=== PATIENT | female | born 1985 | race Caucasian/White ===

== ENCOUNTER → 2017-08-12 | Outpatient (CLI) | payer OTHER ==
[~2017-08-12] MED LIST: PREN1TAB46 PO
== END ==
LOC: HPND 08:12
PROVIDERS: ATTEND Obstetrics & Gynecology
DX: O35.8XX0 Maternal care for other (suspected) fetal abnormality and damage, not applicable or unspecified (principal); O34.12 Maternal care for benign tumor of corpus uteri, second trimester; O99.212 Obesity complicating pregnancy, second trimester; E66.9 Obesity, unspecified; Z68.30 Body mass index [BMI] 30.0-30.9, adult; O26.892 Other specified pregnancy related conditions, second trimester; R19.01 Right upper quadrant abdominal swelling, mass and lump
CPT/HCPCS: 76811

== ENCOUNTER → 2017-09-23 | Outpatient (CLI) | payer OTHER ==
[~2017-09-23] MED LIST changes: +PROC2.5C RECTAL
== END ==
LOC: HPND 09:04
PROVIDERS: ATTEND Obstetrics & Gynecology
DX: O99.212 Obesity complicating pregnancy, second trimester (principal); O35.8XX0 Maternal care for other (suspected) fetal abnormality and damage, not applicable or unspecified; O34.12 Maternal care for benign tumor of corpus uteri, second trimester; E66.9 Obesity, unspecified; Z68.30 Body mass index [BMI] 30.0-30.9, adult
CPT/HCPCS: 76816

== ENCOUNTER → 2017-10-28 | Outpatient (CLI) | payer OTHER | LOC: HPND 08:53 | PROVIDERS: ATTEND Obstetrics & Gynecology | DX: O26.893 Other specified pregnancy related conditions, third trimester (principal); R19.03 Right lower quadrant abdominal swelling, mass and lump; O34.13 Maternal care for benign tumor of corpus uteri, third trimester | CPT/HCPCS: 76816 ==

== ENCOUNTER 2017-11-25 11:06 | Emergency (ER) | payer OTHER ==
[~2017-11-25] VITALS: Ht 172.7 cm; Wt 95.3 kg
[2017-11-25] VITALS (14 sets, daily range): BP systolic 100–121; BP diastolic 64–68; PULSE 71–113
--- NOTE | 2017-11-25 12:07 | PD ---
HPI Chief Complaint contractions Date Seen: Nov 25, 2017 Time Seen: 11:50 Travel History International Travel<30 Days: No Contact w/Intl Traveler<30Days: No Known Affected Area: No History of Present Illness HPI Ms. Payne is a 32-year-old at 37/4 weeks gestation with a past medical history of gestational diabetes diet-controlled presenting to the ED with contractions. She states that the contractions started last night at 11 PM. Pain is a 6 out of 10. Contractions are now every 3 minutes. She is feeling the baby move. Is having no vaginal bleeding or leakage of fluid. No dysuria, no chest pain, no shortness of breath. 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 (not yet determined due to ) Obstetric History Obstetric History Girl, 14, term, Girl, 15, term, Past Surgical History Surgical History: No Previous Surgery Family History Family History: Negative Social History Alcohol Use: No (one glass of wine during baby shower) Tobacco Use: No Substance Abuse: No Allergies-Medications (Allergen,Severity, Reaction): Coded Allergies: No Known Allergies (Unverified , 09/25/17) Home Meds Active Scripts Vit W/ Fe Polysacch C (Prefera Ob 34-1 mg) 28 Mg-6 Mg-1 Mg Tab, 1 CAPLET PO DAILY for 30 Days, #30 CAPLET 3 Refills Prov:Amanda Keating CNM [facility] 07/17/17 Discontinued Scripts Hydrocortisone Rectal 2.5% (Proctosol Hc 2.5%) 2.5% Cream, 1 APPLIC RECTAL Q4H Y for PAIN/INFLAMMATION, #1 TUBE 3 Refills Prov:Tonya Singh [facility] 09/25/17 Vit W/ Fe Polysacch C (Prefera Ob 34-1 mg) 28 Mg-6 Mg-1 Mg Tab, 11 CAPLET PO DAILY for 30 Days, #30 CAPLET 2 Refills Prov:Amanda Keating CNM [facility] 07/30/17 Review of Systems General / Constitutional: No: Fever, Chills Eyes: No: Blurred Vision Cardiovascular: No: Chest Pain or Discomfort Respiratory: No: Short of Breath Genitourinary: No: Dysuria Musculoskeletal: No: Weakness Skin: No Rash Physical Exam Narrative GENERAL: Well-nourished, well-developed patient. SKIN: Warm and dry. HEAD: Normocephalic and atraumatic. EYES: No scleral icterus. No injection or drainage. ENT: No nasal drainage noted. Mucous membranes pink. Airway patent. NECK: Supple, trachea midline. No JVD. CARDIOVASCULAR: Regular rate and rhythm without murmurs, gallops, or rubs. RESPIRATORY: Breath sounds equal bilaterally. No accessory muscle use. ABDOMEN/GI: Abdomen soft, non-tender, bowel sounds present, no rebound, no guarding Gravid to 37 weeks size GENITOURINARY: External Genitalia: intact and normal in appearance Cervix: posterior Dilatation: 2 Effacement: 70 Station: -2 Presentation: - Membranes: intact Uterine Contractions: q3min FHT's: Category: 1 Baseline: 150s Reactive: yes Variability: moderate Decels: none EXTREMITIES: No cyanosis or edema. BACK: Nontender without obvious deformity. No CVA tenderness. NEUROLOGICAL: Awake and alert. Motor and sensory grossly within normal limits. Five out of 5 muscle strength in all muscle groups. Normal speech. Data Data Vital Signs Reviewed: Yes MDM Plan 32-year-old with past medical history of gestational diabetes diet- controlled presenting with contractions. Cervical check is 2/70/-2 with no spinning frame changer the time while in the ED. FHT shows category 1 tracing, reassuring -1 dose of terbutaline 0.25 mg subcu to be given to stop contractions sdw Dr. Ang Diagnosis Diagnosis: Primary Impression: 37 weeks gestation of Disposition: DISCHARGE HOME Condition: Stable Mala Kevin MD R1 Nov 25, 2017 12:07
[2017-11-25] MEDS ORDERED: TERBUTALINE INJ 1 MG/ML AMP ONE (13:57)
--- NOTE | 2017-11-25 13:57 | PD ---
History of Present Illness History of Present Illness NST/BPP report Indications: IUP at 37.4, A1 diabetes, sickle cell trait, history of polyhydramnios heart rate is in the 130s with moderate long-term variability, good accelerations, no decelerations noted. This is a reactive NST and a category 1 heart rate tracing Biophysical profile was performed and greater than 30 seconds continuous breathing were noted, greater than 3 flexion/extension motions, numerous movements were noted. All of the amniotic fluid pockets are greater than 2 x 2 CM. DIANA 7.5/2.99/8.3/3.02 (21.85) Final diagnosis: IUP at 37.4, A1 diabetes, sickle cell trait, polyhydramnios Follow-up as clinically indicated Tonya Ang MD Nov 25, 2017 13:57
[2017-11-25] MEDS ORDERED: TERBUTALINE INJ 1 MG/ML AMP SQ ONE (14:15)
== END 2017-11-25 14:46 | disposition home or self-care (01) ==
LOC: HOBED 11:06
DX: O24.410 Gestational diabetes mellitus in pregnancy, diet controlled (principal); O40.9XX0 Polyhydramnios, unspecified trimester, not applicable or unspecified; D57.3 Sickle-cell trait; Z3A.37 37 weeks gestation of pregnancy
CPT/HCPCS: 59025; 76815; 82948; 96372; 99283; J3105

== ENCOUNTER 2017-11-27 21:59 | Emergency (ER) | payer OTHER ==
[~2017-11-27 21:59] MED LIST changes: -PROC2.5C RECTAL
--- NOTE | 2017-11-27 22:34 | PD ---
HPI Chief Complaint Lower abdominal pain low back pain Date Seen: Nov 27, 2017 Time Seen: 22:28 Travel History International Travel<30 Days: No Contact w/Intl Traveler<30Days: No Known Affected Area: No History of Present Illness HPI Patient is 32-year-old at 37-38 weeks [facility] presents complaining of contractions and lower back pain, she states she has been hao for a couple of weeks his low back pain started several hours ago she tried a hot bath at home. She has no bleeding or leakage of fluid babies active and no contractions are seen, rate tracing is reactive Weeks Gestation: 37 Para: 2 : 3 History Obstetric History Obstetric History 2 vaginal deliveries Social History Alcohol Use: No Tobacco Use: No Substance Abuse: No Allergies-Medications (Allergen,Severity, Reaction): Coded Allergies: No Known Allergies (Unverified , 09/25/17) Home Meds Active Scripts Vit W/ Fe Polysacch C (Prefera Ob 34-1 mg) 28 Mg-6 Mg-1 Mg Tab, 1 CAPLET PO DAILY for 30 Days, #30 CAPLET 3 [facility] Discontinued Scripts Hydrocortisone Rectal 2.5% (Proctosol Hc 2.5%) 2.5% Cream, 1 APPLIC RECTAL Q4H Y for PAIN/INFLAMMATION, #1 TUBE 3 Refills Prov:Tonya SinghP 09/25/17 Vit W/ Fe Polysacch C (Prefera Ob 34-1 mg) 28 Mg-6 Mg-1 Mg Tab, 11 CAPLET PO DAILY for 30 Days, #30 CAPLET 2 [facility]ills [facility] 07/30/17 Review of Systems General / Constitutional: No: Fever, Weight Gain, Chills, Other Eyes: No: Diploplia, Blurred Vision, Visual changes, Pain, Photophobia HENT: No: Headaches, Vertigo, Lightheadedness Cardiovascular: No: Irregular Rhythm, Chest Pain or Discomfort, Palpitations, Tachycardia, Syncope, Varicosities, Edema, Cyanosis Respiratory: No: Cough, Short of Breath, Other Gastrointestinal: Abdominal Pain, No: Nausea, Vomiting, Diarrhea Genitourinary: No: Decreased Urinary Output, Oliguria Musculoskeletal: No: Limited ROM, Weakness, Cramping, Edema, Pain Skin: No Rash, No Itching, No Dryness, No Lumps, No Change in Pigmentation, No Change in Nails, No Alopecia, No Lesions Neurologic: No: Weakness, Dizziness, Syncope, Focal Abnormalities, Coordination Problem, Headache, Slurred Speech, Seizures Psychiatric: No: Depression, Suicidal Ideations, Homicidal Ideation Endocrine: No: Heat Intolerance, Cold Intolerance, Polydipsia, Polyuria, Other Physical Exam Narrative GENERAL: Well-nourished, well-developed patient. SKIN: Warm and dry. HEAD: Normocephalic and atraumatic. EYES: No scleral icterus. No injection or drainage. ENT: No nasal drainage noted. Mucous membranes pink. Airway patent. NECK: Supple, trachea midline. No JVD. CARDIOVASCULAR: Regular rate and rhythm without murmurs, gallops, or rubs. RESPIRATORY: Breath sounds equal bilaterally. No accessory muscle use. BREASTS: Bilateral exam showed no masses , no retractions, no nipple discharge. ABDOMEN/GI: Abdomen soft, non-tender, bowel sounds present, no rebound, no guarding Gravid to [-38] weeks size Fundal Height: [-38] GENITOURINARY: External Genitalia: intact and normal in appearance BUS glands: [-] Cervix: [post-] Dilatation: [-2-3] Effacement: [thick-] Station: [-3] Presentation: [vtx-] Membranes: [intact ] Uterine Contractions: [no reg CTX-] FHT's: Category: [1-] Baseline: [-144] Reactive: [-R] Variability: [mod-] Decels: [-none] EXTREMITIES: No cyanosis or edema. BACK: Nontender without obvious deformity. No CVA tenderness. NEUROLOGICAL: Awake and alert. Motor and sensory grossly within normal limits. Five out of 5 muscle strength in all muscle groups. Normal speech. MDM Interpretation(s) Patient is 32-year-old he [facility] and presents complaining of contractions and low back pain here on OB ED she is not hao heart rate tracing is reactive, cervix is unchanged check which is 2-3/ very thick/ and very posterior Plan , Heating pad or hot bath for symptoms, Tylenol as needed, increase p.o. hydration, she was offered an IM pain shot but she refused that Return for increasing pain, bleeding, or leakage of fluid Diagnosis Diagnosis: Primary Impression: Abdominal pain during in third trimester Additional Impression: Low back pain during in third trimester Disposition: 01 DISCHARGE HOME Condition: Stable Marquis Aden II, MD Nov 27, 2017 22:34
== END 2017-11-27 22:47 | disposition home or self-care (01) ==
LOC: HOBED 21:59
DX: O26.893 Other specified pregnancy related conditions, third trimester (principal); M54.5 Low back pain; R10.30 Lower abdominal pain, unspecified; Z3A.37 37 weeks gestation of pregnancy
CPT/HCPCS: 59025

== ENCOUNTER 2017-12-05 17:23 | Inpatient (IN) | payer OTHER ==
[~2017-12-05] VITALS: Ht 172.7 cm; Wt 98.9 kg
[2017-12-05] VITALS (20 sets, daily range): BP systolic 113–162; BP diastolic 46–102; PULSE 66–111; RESP 18; TEMP 98
[2017-12-05] MEDS ORDERED: LACTATED RINGER'S 1000 ML INJ 1,000 ML IV PRN (19:36)
[2017-12-05] MEDS ORDERED: LIDOCAINE HCL 1% 50 ML VIAL INFIL PRN (19:45)
[2017-12-05] MEDS ORDERED: OXYTOCIN 30 UNITS-500ML PREMIX 500 ML IV ONE (19:45)
[2017-12-05] MEDS ORDERED: MINERAL OIL 10 ML VIAL TOPICAL PRN (19:45)
[2017-12-05] MEDS ORDERED: LIDOCAINE HCL 1% 50 ML VIAL I-DERMAL PRN (19:45)
[2017-12-05] MEDS ORDERED: ONDANSETRON HCL 4 MG/2 ML VIAL IV PUSH PRN (19:45)
[2017-12-05] MEDS ORDERED: SODIUM CHLORID 0.9% 500 ML INJ 500 ML IV PRN (19:45)
[2017-12-05] MEDS ORDERED: CITRIC ACID-SODIUM CITRATE LIQ 30 ML UDC PO SCH (19:45)
--- NOTE | 2017-12-05 19:47 | HHI.HP ---
History & Physical H&P HPI Chief Complaint ctxs Date Seen: Dec 05, 2017 Time Seen: 19:39 Travel History International Travel<30 Days: No Contact w/Intl Traveler<30Days: No Known Affected Area: No History of Present Illness HPI pt. is a 32 y/o @ 39 weeks present w/ c/o ctxs. pt. states thruout the day pt. has had increasing ctxs in freq and intensity. +FM, no lof/vb. pt. cervix /0 bulging membranes. Weeks Gestation: 39 Para: 2 : 3 History (Limited) History Past Medical History Medical History: Denies Significant Hx Obstetric History Obstetric History , x 2, tab x 1 Past Surgical History Surgical History: No Previous Surgery Family History Family History: Negative Social History Alcohol Use: No Tobacco Use: No Substance Abuse: No Allergies-Medications Allergies-Medications (Allergen,Severity, Reaction): Coded Allergies: No Known Allergies (Unverified , 12/05/17) Home Meds Active Scripts Vit W/ Fe Polysacch C (Prefera Ob 34-1 mg) 28 Mg-6 Mg-1 Mg Tab, 1 CAPLET PO DAILY for 30 Days, #30 CAPLET 3 Refills Prov:Amanda Keating CNM [facility] 07/17/17 ROS Review of Systems Except as stated in HPI: all other systems reviewed are Neg Physical Exam Physical Exam Narrative GENERAL: Well-nourished, well-developed patient. SKIN: Warm and dry. HEAD: Normocephalic and atraumatic. EYES: No scleral icterus. No injection or drainage. ENT: No nasal drainage noted. Mucous membranes pink. Airway patent. NECK: Supple, trachea midline. No JVD. CARDIOVASCULAR: Regular rate and rhythm without murmurs, gallops, or rubs. RESPIRATORY: Breath sounds equal bilaterally. No accessory muscle use. ABDOMEN/GI: Abdomen soft, non-tender, bowel sounds present, no rebound, no guarding Gravid GENITOURINARY: External Genitalia: intact and normal in appearance Dilatation: 4 Effacement:80 Station: 0 Presentation: cephalic Membranes:intact Uterine Contractions: q 3 min FHT's: Category: 1 Reactive: + Variability:mod EXTREMITIES: No cyanosis or edema. BACK: Nontender without obvious deformity. No CVA tenderness. NEUROLOGICAL: Awake and alert. Motor and sensory grossly within normal limits. Five out of 5 muscle strength in all muscle groups. Normal speech. Data Data Data Vital Signs Reviewed: Yes Orders Orders Admit To Inpatient (12/05/17 ) Code Status (12/05/17 19:36) Vital Signs (Adult) .Per protocol (12/05/17 19:36) Activity Oob Ad [place] (12/05/17 19:36) Heart (12/05/17:36) Amnioinfusion (12/05/17 19:36) Urinary Catheter Management .ONCE (12/05/17 19:36) Diet Liquid (12/06/17 Breakfast) Lactated Ringer's 1000 Ml Inj (Lr 1000 M (12/05/17 19:36) Lactated Ringer's 1000 Ml Inj (Lr 1000 M (12/05/17 19:36) Sodium Chlorid 0.9% 500 Ml Inj (Ns 500 M (12/05/17 19:45) Sodium Chlor 0.9% 1000 Ml Inj (Ns 1000 M (12/05/17 19:56) Lidocaine 1% Inj (50 Ml) (Xylocaine 1% I (12/05/17 19:45) Citric Acid-Sodium Citrate Liq (Bicitra (12/05/17 19:45) Ondansetron Inj (Zofran Inj) (12/05/17 19:45) Fentanyl Inj (Fentanyl Inj) (12/05/17 19:45) Fentanyl Inj (Fentanyl Inj) (12/05/17 19:45) Complete Blood Count With Diff (12/05/17 19:36) Hold Clot (12/05/17 19:36) Abo/Rh Blood Type (12/05/17 19:36) Urinalysis - C+S If Indicated (12/05/17 19:36) Drug Screen, Random Urine (12/05/17 19:36) Ob/Psych Drug Screen, Urine (12/05/17:36) Resp Oxygen Non Rebreathe Mask (12/05/17 ) ^ Epidural / Intrathecal Infus (12/05/17 19:36) Oxytocin 30 Units-500ml Premix (Pitocin (12/05/17 19:45) Lidocaine 1% Inj (50 Ml) (Xylocaine 1% I (12/05/17 19:45) Light Mineral Oil (Muri-Lube Oil) (12/05/17 19:45) Inpatient Certification (12/05/17 ) Group B Strep: Negative MDM MDM Medical Record Reviewed: Yes Plan pt in active labor. will admit. fht reassuring. epidural vs fentanyl. will continue to follow. Diagnosis Diagnosis: Primary Impression: 39 weeks gestation of Additional Impression: Uterine contractions during Peng Goff Jr., MD Dec 05, 2017 19:47
[2017-12-05] MEDS ORDERED: SODIUM CHLOR 0.9% 1000 ML INJ 1,000 ML IV PRN (19:56)
[2017-12-05] MEDS ORDERED: fentaNYL 2MCG-BUPIV 0.125% INJ 100 ML ONE (20:03)
[2017-12-05] MEDS: LACTATED RINGER'S 1000 ML INJ 1,000 ML IV SCH (20:10)
[2017-12-05 20:39] LABS: AUTOMATED NEUTROPHIL # 11.9 TH/MM3 (1.8-7.7); BASOPHIL % 0.3 % (0.0-2.0); EOSINOPHIL % 0.3 % (0.0-4.0); HEMATOCRIT 33.6 % (35.0-46.0); HEMOGLOBIN 11.1 GM/DL (11.6-15.3); LYMPH % 11.9 % (9.0-44.0); LYMPHOCYTE # 1.7 TH/MM3 (1.0-4.8); MEAN CELL VOLUME 73.7 FL (80.0-100.0); MEAN CORPUSCULAR HEMOGLOBIN 24.5 PG (27.0-34.0); MEAN CORPUSCULAR HGB CONC 33.2 % (32.0-36.0); MEAN PLATELET VOLUME 9.1 FL (7.0-11.0); MONOCYTE # 0.6 TH/MM3 (0-0.9); NEUT % 83.5 % (16.0-70.0); PLATELET COUNT 255 TH/MM3 (150-450); RED BLOOD COUNT 4.56 MIL/MM3 (4.00-5.30); RED CELL DISTRIBUTION WIDTH 16.2 % (11.6-17.2); WHITE BLOOD COUNT 14.3 TH/MM3 (4.0-11.0)
[2017-12-05 20:56] LABS: BACTERIA, URINE RARE /hpf; BILIRUBIN, URINE NEG (NEG); BLOOD, URINE MOD (NEG); GLUCOSE,URINE NEG (NEG); KETONE, URINE 40 mg/dL (NEG); MUCUS URINE FEW /lpf (OCC); NITRITE,URINE NEG (NEG); SQUAMOUS EPITHELIAL CELL URINE 6 /hpf (0-5); URINE COLOR LIGHT-YELLOW (YELLW/STRAW); URINE LEUKOCYTE ESTERASE MOD (NEG)
[2017-12-06] VITALS (203 sets, daily range): BP systolic 62–137; BP diastolic 20–80; PULSE 61–178; RESP 16–18; TEMP 98–99.4; O2SAT 95–100
[2017-12-06] MEDS ORDERED: ePHEDrine/NS 25 MG/5 ML SYRINGE ONE (00:49)
[2017-12-06] MEDS: LACTATED RINGER'S 1000 ML INJ 1,000 ML IV SCH ×2 (04:30→17:07)
[2017-12-06] MEDS ORDERED: fentaNYL 2MCG-BUPIV 0.125% INJ 100 ML ONE ×2 (06:33→12:52)
--- NOTE | 2017-12-06 09:23 | PD.LABORPN ---
Subjective Subjective Ms Payne continues to labor. AROM performed at 0900hrs by Jareth Goff and Bonifacio. Pt is 4/50/0. FHT with baseline 145, moderate variability, reactive, absent decels Objective Vital Signs Vital Signs Date Time Temp Pulse Resp B/P (MAP) Pulse Ox O2 Delivery O2 Flow Rate FiO2 12/06/17 08:53 98.0 12/06/17 08:40 78 12/06/17 08:35 90 12/06/17 08:31 73 132/69 (90) 12/06/17 08:30 78 12/06/17 08:30 16 12/06/17 08:25 80 12/06/17 08:20 75 12/06/17 08:16 76 120/65 (83) 12/06/17 08:15 73 12/06/17 08:10 87 12/06/17 08:05 85 12/06/17 08:01 83 121/71 (88) 12/06/17 08:00 78 12/06/17 08:00 16 12/06/17 07:55 81 12/06/17 07:50 81 12/06/17 07:46 95 98/47 (64) 12/06/17 07:45 92 12/06/17 07:30 16 12/06/17 07:25 82 12/06/17 07:20 95 12/06/17 07:15 87 12/06/17 07:15 92 114/62 (79) 12/06/17 06:50 84 12/06/17 06:46 95 113/52 (72) 12/06/17 06:45 88 12/06/17 06:40 85 12/06/17 06:35 84 12/06/17 06:31 69 124/65 (84) 12/06/17 06:30 86 12/06/17 06:25 89 12/06/17 06:20 86 12/06/17 06:16 88 110/63 (79) 12/06/17 06:15 87 12/06/17 06:05 76 12/06/17 06:01 66 128/65 (86) 12/06/17 06:00 99.4 84 18 12/06/17 05:55 82 12/06/17 05:50 77 12/06/17 05:46 80 113/60 (77) 12/06/17 05:45 85 12/06/17 05:35 81 12/06/17 05:31 77 124/68 (86) 12/06/17 05:30 75 12/06/17 05:25 82 12/06/17 05:20 82 12/06/17 05:16 79 120/67 (84) 12/06/17 05:15 79 12/06/17 05:01 128/61 (83) 12/06/17 05:00 81 12/06/17 04:45 116/67 (83) 12/06/17 04:30 93 120/70 (87) 12/06/17 04:15 79 107/58 (74) 12/06/17 04:00 98.0 12/06/17 04:00 76 12/06/17 04:00 105/51 (69) 12/06/17 03:45 108/56 (73) 12/06/17 03:31 107/56 (73) 12/06/17 03:16 122/63 (82) 12/06/17 03:15 74 12/06/17 03:10 90 12/06/17 03:05 86 12/06/17 03:01 78 127/64 (85) 12/06/17 03:00 78 12/06/17 02:55 78 12/06/17 02:50 76 12/06/17 02:46 75 128/61 (83) 12/06/17 02:45 80 12/06/17 02:31 80 134/56 (82) 12/06/17 02:30 95 12/06/17 02:25 81 12/06/17 02:20 82 12/06/17 02:16 76 126/63 (84) 12/06/17 02:15 80 12/06/17 02:15 98.1 18 12/06/17 02:10 87 12/06/17 02:05 81 12/06/17 02:01 83 124/66 (85) 12/06/17 02:00 80 12/06/17 01:46 72 124/57 (79) 12/06/17 01:45 84 12/06/17 01:40 79 100 12/06/17 01:36 89 109/60 (76) 12/06/17 01:35 79 100 12/06/17 01:31 76 108/57 (74) 12/06/17 01:30 82 100 12/06/17 01:30 82 100 12/06/17 01:26 68 114/53 (73) 12/06/17 01:26 68 114/53 (73) 12/06/17 01:25 83 100 12/06/17 01:25 83 100 12/06/17 01:21 69 112/51 (71) 12/06/17 01:20 79 12/06/17 01:20 100 12/06/17 01:20 100 12/06/17 01:16 81 101/57 (72) 12/06/17 01:15 89 12/06/17 01:15 100 12/06/17 01:15 100 Objective Pelvic Exam: Cervix: open Dilatation: 4 Effacement: 50 Station: 0 Presentation: vtx Membranes: AROM 0900AM 12/06/17 Uterine Contractions: regular, 2-3 minutes FHT's: Category: 1 Baseline: 145 Reactive: yes Variability: moderate Decels: absent Weeks Gestation: 39 Artificial rupture of membrane: Yes Artificial ROM date: Dec 06, 2017 Artifical ROM time: 09:00 Assessment/Plan Problem List: (1) 39 weeks gestation of ICD Codes: Z3A.39 - 39 weeks gestation of Status: Acute Plan: 32YO at 39/1 weeks with AROM at 0900AM 12/06/[address] Valdovinos. Cervix is 4/50/0. FHT baseline 145, reactive, moderate, no decels 1. IUP -Monitor -[place] -Cervical check q2h (2) GDM (gestational diabetes mellitus) ICD Codes: O24.419 - Gestational diabetes mellitus in , unspecified control Plan: Diagnosed late in ; pt has not been compliant; no 3 hr GTT -Fingerstick blood glucose 80 this morning Dima Valdovinos MD R1 Dec 06, 2017 09:23
[2017-12-06] MEDS ORDERED: OXYTOCIN 30 UNITS-500ML PREMIX 500 ML IV PRN (10:30)
[2017-12-06] MEDS ORDERED: ceFAZolin INJ 1,000 MG VIAL IV ONE (12:00)
[2017-12-06] MEDS ORDERED: NORMOSOL R INJ 1,000 ML IV ONE (12:00)
[2017-12-06] MEDS ORDERED: DEXAMETHASONE SOD PHOS 4 MG/ML VIAL IV ONE (12:00)
[2017-12-06] MEDS ORDERED: OXYTOCIN 10 UNIT/ML AMP IV ONE (12:00)
[2017-12-06] MEDS ORDERED: KETOROLAC TROMETHAMINE 30 MG/ML (IVP) VIAL IV PUSH ONE (12:00)
[2017-12-06] MEDS ORDERED: ONDANSETRON HCL 4 MG/2 ML VIAL IV ONE (12:00)
[2017-12-06] MEDS ORDERED: LIDOCAINE HCL 2% PF 10 ML VIAL IV ONE (12:00)
[2017-12-06] MEDS ORDERED: DO NOT ADMINISTER ANTICOAGULANTS PRN (14:00)
[2017-12-06] MEDS ORDERED: NO SYSTEM NARCOTICS PRN (14:00)
[2017-12-06] MEDS ORDERED: ePHEDrine/NS 25 MG/5 ML SYRINGE IV PUSH PRN (14:00)
[2017-12-06] MEDS ORDERED: fentaNYL 2MCG-BUPIV 0.125% 100 ML EPIDURAL SCH (14:00)
--- NOTE | 2017-12-06 16:32 | PD.LABORPN ---
Subjective Subjective 32YO at 39/1 weeks laboring with Pitocin augmentation. Cervix at 1600hrs is 7-8/80/-1 with Cat 2, FHT 150s, moderate, reactive with several variable decels corrected by repositioning on side (Dima Valdovinos MD R1) Objective Vital Signs Vital Signs Date Time Temp Pulse Resp B/P (MAP) Pulse Ox O2 Delivery O2 Flow Rate FiO2 12/06/17 16:01 81 123/70 (87) 12/06/17 16:00 98.2 16 12/06/17 15:46 76 116/66 (83) 12/06/17 15:31 72 118/60 (79) 12/06/17 15:28 16 12/06/17 15:16 109 119/60 (79) 12/06/17 15:01 72 105/41 (62) 12/06/17 15:00 16 12/06/17 14:46 72 129/69 (89) 12/06/17 14:31 72 124/66 (85) 12/06/17 14:30 16 12/06/17 14:16 70 104/66 (79) 12/06/17 14:00 99.0 16 12/06/17 14:00 89 112/66 (81) 12/06/17 13:46 70 107/57 (74) 12/06/17 13:31 69 102/48 (66) 12/06/17 13:30 16 12/06/17 13:16 69 103/47 (65) 12/06/17 13:01 76 103/45 (64) 12/06/17 13:00 16 12/06/17 12:46 67 121/67 (85) 12/06/17 12:45 16 12/06/17 12:31 118/61 (80) 12/06/17 12:31 72 12/06/17 12:16 75 133/73 (93) 12/06/17 12:15 16 12/06/17 12:01 158 120/64 (82) 12/06/17 12:00 98.1 16 12/06/17 11:46 69 131/65 (87) 12/06/17 11:31 79 125/63 (83) 12/06/17 11:30 16 12/06/17 11:16 80 117/65 (82) 12/06/17 11:01 82 118/67 (84) 12/06/17 11:00 16 12/06/17 10:50 68 12/06/17 10:46 83 117/63 (81) 12/06/17 10:45 75 12/06/17 10:40 73 12/06/17 10:35 94 12/06/17 10:31 86 107/62 (77) 12/06/17 10:30 74 12/06/17 10:30 16 12/06/17 10:25 80 12/06/17 10:16 74 115/67 (83) 12/06/17 10:15 78 12/06/17 10:10 82 12/06/17 10:05 88 12/06/17 10:01 86 125/62 (83) 12/06/17 10:00 92 12/06/17 10:00 98.5 16 12/06/17 09:55 95 12/06/17 09:50 77 12/06/17 09:46 75 116/66 (83) 12/06/17 09:45 77 12/06/17 09:25 81 12/06/17 09:20 79 12/06/17 09:16 80 117/65 (82) 12/06/17 09:15 76 12/06/17 08:53 98.0 12/06/17 08:40 78 12/06/17 08:35 90 12/06/17 08:31 73 132/69 (90) 12/06/17 08:30 78 12/06/17 08:30 16 12/06/17 08:25 80 Objective Pelvic Exam: Cervix: open Dilatation: 7-8 Effacement: 80 Station: -1 Presentation: vtx Membranes: AROM at 0900 on 12/06 Uterine Contractions: q2 minutes, regular FHT's: Category: 2 Baseline: 150s Reactive: yes Variability: moderate Decels: several variable decels, corrected with repositioning Weeks Gestation: 39 Artificial rupture of membrane: Yes Artificial ROM date: Dec 06, 2017 Artifical ROM time: 09:00 (Dima Valdovinos MD R1) Assessment/Plan Problem List: (1) 39 weeks gestation of ICD Codes: Z3A.39 - 39 weeks gestation of Status: Acute Plan: 32YO at 39/1 weeks with AROM at 0900AM 4/6/[address] Valdovinos. Re- check at 1600hrs with cervix is 7-8/80/-1. Labor augmented by Pitocin. FHT Cat 2 , baseline 150s, reactive, moderate, several variable decels corrected by repositioning on side 1. [place] IUP with labor augmentation -Monitor -[place] -Epidural in place -Cervical check q2h -Pitocin 10/04/29, titrate per protocol -Reposition when variable decels -Consider supplemental O2 if repositioning unsuccessful -Consider reducing Pitocin if variable decels recur 2. GDM -Monitor Pt seen with Dr Yanna Ruelas and melissa Castillo (2) GDM (gestational diabetes mellitus) ICD Codes: O24.419 - Gestational diabetes mellitus in , unspecified control Plan: Diagnosed late in ; pt has not been compliant; no 3 hr GTT -Fingerstick blood glucose 80 this morning (Dima Valdovinos MD R1) Assessment and Plan Patient seen and evaluated with resident under direct supervision, agree with assessment and plan. (Jaime Castillo MD) Dima Valdovinos MD R1 Dec 06, 2017 16:32 Jaime Castillo MD Dec 06, 2017 21:32
--- NOTE | 2017-12-06 18:16 | PD.LABORPN ---
Subjective Subjective Patient feeling pressure and can sense CTX, otherwise no complaints (Lindsay Ruelas MD R2) Objective Vital Signs Vital Signs Date Time Temp Pulse Resp B/P (MAP) Pulse Ox O2 Delivery O2 Flow Rate FiO2 12/06/17 17:27 16 12/06/17 17:16 78 112/62 (79) 12/06/17 17:01 86 99/43 (61) 12/06/17 17:00 16 12/06/17 16:46 78 119/67 (84) 12/06/17 16:31 82 102/58 (73) 12/06/17 16:26 16 12/06/17 16:16 77 107/80 (89) 12/06/17 16:01 81 123/70 (87) 12/06/17 16:00 98.2 16 12/06/17 15:46 76 116/66 (83) 12/06/17 15:31 72 118/60 (79) 12/06/17 15:28 16 12/06/17 15:16 109 119/60 (79) 12/06/17 15:01 72 105/41 (62) 12/06/17 15:00 16 12/06/17 14:46 72 129/69 (89) 12/06/17 14:31 72 124/66 (85) 12/06/17 14:30 16 12/06/17 14:16 70 104/66 (79) 12/06/17 14:00 99.0 16 12/06/17 14:00 89 112/66 (81) 12/06/17 13:46 70 107/57 (74) 12/06/17 13:31 69 102/48 (66) 12/06/17 13:30 16 12/06/17 13:16 69 103/47 (65) 12/06/17 13:01 76 103/45 (64) 12/06/17 13:00 16 12/06/17 12:46 67 121/67 (85) 12/06/17 12:45 16 12/06/17 12:31 118/61 (80) 12/06/17 12:31 72 12/06/17 12:16 75 133/73 (93) 12/06/17 12:15 16 12/06/17 12:01 158 120/64 (82) 12/06/17 12:00 98.1 16 12/06/17 11:46 69 131/65 (87) 12/06/17 11:31 79 125/63 (83) 12/06/17 11:30 16 12/06/17 11:16 80 117/65 (82) 12/06/17 11:01 82 118/67 (84) 12/06/17 11:00 16 12/06/17 10:50 68 12/06/17 10:46 83 117/63 (81) 12/06/17 10:45 75 12/06/17 10:40 73 12/06/17 10:35 94 12/06/17 10:31 86 107/62 (77) 12/06/17 10:30 74 12/06/17 10:30 16 12/06/17 10:25 80 12/06/17 10:16 74 115/67 (83) 12/06/17 10:15 78 12/06/17 10:10 82 Objective Pelvic Exam: Cervix: 9-10/100/0 Membranes: ruptured Uterine Contractions: q 3 min FHT's: Category: 2 Baseline: 150s Reactive: 170s Variability: mod Decels: variables intermittently Weeks Gestation: 39 Artificial rupture of membrane: Yes Artificial ROM date: Dec 06, 2017 Artifical ROM time: 09:00 (Lindsay Ruelas MD R2) Assessment/Plan Problem List: (1) 39 weeks gestation of ICD Codes: Z3A.39 - 39 weeks gestation of Status: Acute Plan: 32YO at 39/1 weeks with AROM at 0900AM 12/06/[address] Valdovinos. Cervix 9 cm, will continue to monitor. FHT Cat 2, baseline 150s, reactive, moderate, intermittent variables noted but self-resolving at this time. Patient left lateral decub at this time 1. [place] IUP with labor augmentation -Monitor -[place] -Epidural in place -Cervical check q2h -Pitocin 10/04/29, at 10 -Reposition when variable decels -Consider supplemental O2 if repositioning unsuccessful -Consider reducing Pitocin if variable decels recur 2. GDM -Monitor glucose, fasting glucose 80 this morning Pt seen with RN, discussed with Dr. Castillo (2) GDM (gestational diabetes mellitus) ICD Codes: O24.419 - Gestational diabetes mellitus in , unspecified control Plan: Diagnosed late in ; pt has not been compliant; no 3 hr GTT, not on insulin -Fingerstick blood glucose 80 this morning (Lindsay Ruelas MD R2) Assessment and Plan Patient seen and evaluated with resident under direct supervision, agree with assessment and plan. (Jaime Castillo MD) Lindsay Ruelas MD R2 Dec 06, 2017 18:16 Jaime Castillo MD Dec 06, 2017 21:32
[2017-12-06] MEDS ORDERED: diphenhydrAMINE HCL 50 MG/ML VIAL ONE (19:56)
[2017-12-06] MEDS ORDERED: diphenhydrAMINE HCL 50 MG/ML VIAL IV PUSH ONE (20:00)
--- NOTE | 2017-12-06 21:37 | PD.LABORPN ---
Subjective Subjective The patient reports good pain relief. She is fatigued. Objective Vital Signs Vital Signs Date Time Temp Pulse Resp B/P (MAP) Pulse Ox O2 Delivery O2 Flow Rate FiO2 12/06/17 21:15 98.1 73 104/56 (72) 12/06/17 21:01 71 89/67 (74) 12/06/17 20:47 79 123/59 (80) 12/06/17 20:38 178 131/75 (93) 12/06/17 19:53 18 12/06/17 19:46 97 112/55 (74) 12/06/17 19:40 18 12/06/17 19:36 98.2 12/06/17 19:31 109 98/68 (78) 12/06/17 19:21 18 12/06/17 19:16 75 111/58 (75) 12/06/17 19:01 77 104/38 (60) 12/06/17 19:00 16 12/06/17 18:47 98.9 12/06/17 18:46 73 137/61 (86) 12/06/17 18:31 71 123/65 (84) 12/06/17 18:24 16 12/06/17 18:16 69 137/57 (83) 12/06/17 18:01 67 122/56 (78) 12/06/17 18:00 16 12/06/17 17:46 74 120/61 (80) 12/06/17 17:31 79 115/54 (74) 12/06/17 17:27 16 12/06/17 17:16 78 112/62 (79) 12/06/17 17:01 86 99/43 (61) 12/06/17 17:00 16 12/06/17 16:46 78 119/67 (84) 12/06/17 16:31 82 102/58 (73) 12/06/17 16:26 16 12/06/17 16:16 77 107/80 (89) 12/06/17 16:01 81 123/70 (87) 12/06/17 16:00 98.2 16 12/06/17 15:46 76 116/66 (83) 12/06/17 15:31 72 118/60 (79) 12/06/17 15:28 16 4/6/18 15:16 109 119/60 (79) 12/06/17 15:01 72 105/41 (62) 12/06/17 15:00 16 12/06/17 14:46 72 129/69 (89) 12/06/17 14:31 72 124/66 (85) 12/06/17 14:30 16 12/06/17 14:16 70 104/66 (79) 12/06/17 14:00 99.0 16 12/06/17 14:00 89 112/66 (81) 12/06/17 13:46 70 107/57 (74) Objective Pelvic Exam: Cervix: [-] Dilatation: [-9] Effacement: [90-] Station: [--2] Presentation: [vtx-] Membranes: [intact or ruptured] Uterine Contractions: [-Every 2-3 adequate] FHT's: Category: [2-] Baseline: [160s-] Reactive: [-] Variability: [Moderate-] Decels: [Variable-] Weeks Gestation: 39 Gest Age Assessed Date: Dec 06, 2017 Pt started active labor?: Yes Medical induction of labor?: No Artificial rupture of membrane: Yes Artificial ROM date: Dec 06, 2017 Artifical ROM time: 09:00 Assessment/Plan Problem List: (1) 39 weeks gestation of ICD Codes: Z3A.39 - 39 weeks gestation of Status: Acute Plan: 32YO at 39/1 weeks with AROM at 0900AM 12/06/[address] Valdovinos. Cervix 9 cm, will continue to monitor. FHT Cat 2, baseline 150s, reactive, moderate, intermittent variables noted but self-resolving at this time. Patient left lateral decub at this time 1. [place] IUP with labor augmentation -Monitor -[place] -Epidural in place -Cervical check q2h -Pitocin 10/04/29, at 10 -Reposition when variable decels -Consider supplemental O2 if repositioning unsuccessful -Consider reducing Pitocin if variable decels recur 2. GDM -Monitor glucose, fasting glucose 80 this morning Pt seen with RN, discussed with Dr. Castillo (2) GDM (gestational diabetes mellitus) ICD Codes: O24.419 - Gestational diabetes mellitus in , unspecified control Plan: Diagnosed late in ; pt has not been compliant; no 3 hr GTT, not on insulin -Fingerstick blood glucose 80 this morning Assessment and Plan Assessment: The patient has arrested in the active phase of labor Plan: I discussed with the patient the risks benefits and alternatives and we will proceed with primary section. Jaime Castillo MD Dec 06, 2017 21:37
[2017-12-06] MEDS ORDERED: ACETAMINOPHEN 1000 MG/100 ML 100 ML IV ONE (21:43)
--- NOTE | 2017-12-06 22:51 | PD.OP ---
Operative Report Date of Surgery: Dec 06, 2017 Preoperative Diagnosis: (1) Arrested active phase of labor Postoperative Diagnosis: Arrested active phase of labor, fibroid uterus Procedure: Primary lower uterine segment transverse section Anesthesia: Epidural Surgeon: Jaime Castillo Condominium Manager(s): Kavitha Klein Resident Surgeon: None Operation and Findings: The patient was taken to the operating room after administration of a satisfactory level of her labor epidural was prepped and draped in dorsal supine position. The skin was incised transversely in the lower abdomen and the subcutaneous tissues tissue sharply dissected away down to level of the fascia which was nicked in the midline and extended bilaterally with scissors. The fascia was from the underlying muscle sharp and blunt dissection. The peritoneum was bluntly entered. Bladder flap was crated with sharp dissection. An 8 cm subserosal fibroid was noted just above the lower uterine segment. A transverse hysterotomy was made in the lower uterine segment and extended bilaterally with digital traction. The vertex was elevated out of the pelvic inlet and delivered easily through the hysterotomy. With fundal pressure and gentle traction remainder the followed easily. Delayed cord clamping was accomplished. The baby was then passed to the waiting attendants. Cord blood gas segment was obtained and cord blood was obtained. The fundus was massaged until the senna passed spontaneously. It was grossly normal and apparently intact. Uterine cavity was wiped with a moistened lap sponge. There was no evidence of penetrating component of the fibroid into the endometrial cavity. The hysterotomy was then closed with a running suture of 0 Monocryl. Second imbricating layer of 0 Monocryl was used over the first. A single [id number] suture was used for additional hemostasis. After observing excellent hemostasis normal appearing tubes and ovaries were noted. The paracolic gutter and posterior cul-de-sac were evacuated of excess blood and amniotic fluid. The fascia was then closed anteriorly with #1 PDS. The septations tissue was closed with 3-0 Vicryl and the skin with 4-0 undyed Vicryl and tissue glue. The sponge instrument needle counts are correct 3, estimated blood loss 700 cc , complications none Findings: Fibroid uterus, viable female Jaime Castillo MD Dec 06, 2017 22:51
[2017-12-06] MEDS ORDERED: OXYTOCIN 30 UNITS-500ML PREMIX 500 ML IV ONE (23:00)
[2017-12-06] MEDS: ACETAMINOPHEN 1000 MG/100 ML 100 ML IV SCH (23:00)
[2017-12-06] MEDS ORDERED: KETOROLAC TROMETHAMINE 60 MG/2 ML (IM) VIAL IM PRN (23:00)
[2017-12-06] MEDS ORDERED: SODIUM CHLORIDE 0.9% FLUSH 10 ML FLUSH IV FLUSH PRN (23:00)
[2017-12-06] MEDS ORDERED: ONDANSETRON HCL 4 MG/2 ML VIAL IV PUSH PRN (23:00)
[2017-12-07] MEDS ORDERED: EPIDURAL-DO NOT ADMINISTER ANTICOAGULANTS PRN (00:15)
[2017-12-07] MEDS ORDERED: EPIDURAL-NALOXONE HCL 0.4 MG/ML AMP IV PUSH PRN (00:15)
[2017-12-07] MEDS ORDERED: EPIDURAL-DIPHENHYDRAMINE HCL 50 MG CAP PO PRN (00:15)
[2017-12-07] MEDS ORDERED: EPIDURAL-DIPHENHYDRAMINE HCL 50 MG/ML VIAL IV PUSH PRN (00:15)
[2017-12-07] MEDS ORDERED: EPIDURAL-NO SYSTEMIC NARCOTICS PRN (00:15)
[2017-12-07 01:00] VITALS: BP 109/53; PULSE 80; PULSE 98; RESP 18; TEMP 98.2; O2SAT 97
[2017-12-07] MEDS ORDERED: OXYTOCIN INJ 20 UNITS in LACTATED RINGER'S 1000 ML INJ 1,000 ML IV SCH (01:00)
[2017-12-07] MEDS: oxyCODONE/ACETAMINOPHEN 5 MG/325 MG TAB PO PRN ×5 (03:11→20:25)
[2017-12-07] MEDS ORDERED: LACTATED RINGER'S 1000 ML INJ 1,000 ML IV SCH (03:51)
[2017-12-07 04:00] VITALS: BP 116/55; PULSE 91; RESP 18; TEMP 98.3; O2SAT 96
[2017-12-07] MEDS: ACETAMINOPHEN 1000 MG/100 ML 100 ML IV SCH (06:00)
[2017-12-07 07:27] LABS: AUTOMATED NEUTROPHIL # 17.9 TH/MM3 (1.8-7.7); BASOPHIL % 0.1 % (0.0-2.0); HEMATOCRIT 29.9 % (35.0-46.0); HEMOGLOBIN 9.7 GM/DL (11.6-15.3); LYMPH % 4.8 % (9.0-44.0); LYMPHOCYTE # 0.9 TH/MM3 (1.0-4.8); MEAN CELL VOLUME 74.1 FL (80.0-100.0); MEAN CORPUSCULAR HGB CONC 32.4 % (32.0-36.0); MONOCYTE # 0.6 TH/MM3 (0-0.9); NEUT % 92.1 % (16.0-70.0); PLATELET COUNT 202 TH/MM3 (150-450); RED BLOOD COUNT 4.04 MIL/MM3 (4.00-5.30); RED CELL DISTRIBUTION WIDTH 16.1 % (11.6-17.2); WHITE BLOOD COUNT 19.5 TH/MM3 (4.0-11.0)
[2017-12-07 07:30] VITALS: BP 105/56; PULSE 71; RESP 20; TEMP 97.4
--- NOTE | 2017-12-07 07:42 | HHI.OB ---
Subjective Post Operative Day: 1 Remarks Postoperative day # 1. AFVSS overnight. Incision not draining. Decreased lochia. Denies dysuria. No breast tenderness. She is feeding the baby via breast. Appetite good. No nausea or vomiting. Patient has not yet had a bowel movement. Ambulating well. Denies calf pain or shortness of breath. Otherwise , she is doing well this morning and has no other concerns. (Lindsay Ruelas MD R2) Remarks Patient seen and evaluated with resident under direct supervision, agree with assessment and plan. (Jaime Castillo MD) Objective Vitals/I&O Vital Signs Date Time Temp Pulse Resp B/P (MAP) Pulse Ox O2 Delivery O2 Flow Rate FiO2 12/07/17 04:00 91 18 116/55 (75) 96 12/07/17 04:00 98.3 12/07/17 01:00 98.2 98 18 109/53 (71) 97 12/07/17 01:00 80 12/06/17 23:45 86 18 101/53 (69) 12/06/17 23:22 86 18 101/59 (73) 97 12/06/17 23:02 74 18 95/54 (68) 98 12/06/17 22:52 93/49 (64) 12/06/17 22:50 98.9 74 18 98 12/06/17 21:30 149 100/79 (86) 12/06/17 21:15 98.1 73 104/56 (72) 12/06/17 21:01 71 89/67 (74) 12/06/17 20:47 79 123/59 (80) 12/06/17 20:38 178 131/75 (93) 12/06/17 19:53 18 12/06/17 19:46 97 112/55 (74) 12/06/17 19:40 18 12/06/17 19:36 98.2 12/06/17 19:31 109 98/68 (78) 12/06/17 19:21 18 12/06/17 19:16 75 111/58 (75) 12/06/17 19:01 77 104/38 (60) 12/06/17 19:00 16 12/06/17 18:47 98.9 12/06/17 18:46 73 137/61 (86) 12/06/17 18:31 71 123/65 (84) 12/06/17 18:24 16 12/06/17 18:16 69 137/57 (83) 12/06/17 18:01 67 122/56 (78) 12/06/17 18:00 16 12/06/17 17:46 74 120/61 (80) 12/06/17 17:31 79 115/54 (74) 12/06/17 17:27 16 12/06/17 17:16 78 112/62 (79) 12/06/17 17:01 86 99/43 (61) 12/06/17 17:00 16 12/06/17 16:46 78 119/67 (84) 12/06/17 16:31 82 102/58 (73) 12/06/17 16:26 16 12/06/17 16:16 77 107/80 (89) 12/06/17 16:01 81 123/70 (87) 12/06/17 16:00 98.2 16 12/06/17 15:46 76 116/66 (83) 12/06/17 15:31 72 118/60 (79) 12/06/17 15:28 16 12/06/17 15:16 109 119/60 (79) 12/06/17 15:01 72 105/41 (62) 12/06/17 15:00 16 12/06/17 14:46 72 129/69 (89) 12/06/17 14:31 72 124/66 (85) 12/06/17 14:30 16 12/06/17 14:16 70 104/66 (79) 12/06/17 14:00 99.0 16 12/06/17 14:00 89 112/66 (81) 12/06/17 13:46 70 107/57 (74) 12/06/17 13:31 69 102/48 (66) 12/06/17 13:30 16 12/06/17 13:16 69 103/47 (65) 12/06/17 13:01 76 103/45 (64) 12/06/17 13:00 16 12/06/17 12:46 67 121/67 (85) 12/06/17 12:45 16 12/06/17 12:31 118/61 (80) 12/06/17 12:31 72 12/06/17 12:16 75 133/73 (93) 12/06/17 12:15 16 12/06/17 12:01 158 120/64 (82) 12/06/17 12:00 98.1 16 18 11:46 69 131/65 (87) 12/06/17 11:31 79 125/63 (83) 12/06/17 11:30 16 12/06/17 11:16 80 117/65 (82) 12/06/17 11:01 82 118/67 (84) 12/06/17 11:00 16 12/06/17 10:50 68 12/06/17 10:46 83 117/63 (81) 12/06/17 10:45 75 12/06/17 10:40 73 12/06/17 10:35 94 12/06/17 10:31 86 107/62 (77) 12/06/17 10:30 74 12/06/17 10:30 16 12/06/17 10:25 80 12/06/17 10:16 74 115/67 (83) 12/06/17 10:15 78 12/06/17 10:10 82 12/06/17 10:05 88 12/06/17 10:01 86 125/62 (83) 12/06/17 10:00 92 12/06/17 10:00 98.5 16 12/06/17 09:55 95 12/06/17 09:50 77 18 09:46 75 116/66 (83) 12/06/17 09:45 77 18 09:25 81 18 09:20 79 18 09:16 80 117/65 (82) 12/06/17 09:15 76 18 08:53 98.0 12/06/17 08:40 78 18 08:35 90 12/06/17 08:31 73 132/69 (90) 12/06/17 08:30 78 18 08:30 16 18 08:25 80 18 08:20 75 18 08:16 76 120/65 (83) 12/06/17 08:15 73 18 08:10 87 12/06/17 08:05 85 12/06/17 08:01 83 121/71 (88) 12/06/17 08:00 78 12/06/17 08:00 16 12/06/17 07:55 81 12/06/17 07:50 81 12/06/17 07:46 95 98/47 (64) 12/06/17 07:45 92 (Lindsay Ruelas MD R2) Result Diagram: 12/07/17 0638 Objective Remarks GENERAL: Well-nourished, well-developed patient. CARDIOVASCULAR: Regular rate and rhythm without murmurs, gallops, or rubs. RESPIRATORY: Breath sounds equal bilaterally. No accessory muscle use. ABDOMEN/GI: Abdomen soft, non-tender, bowel sounds present. Incision: Clean, dry and intact. Fundus: Firm, non-tender at umbilicus. GENITOURINARY: Light to moderate bleeding. EXTREMITIES: No cyanosis or edema, non-tender, without signs of DVT. Medications and IVs Current Medications Medications (Trade) Dose Ordered Sig/Jose Roberto Route Start Time Stop Time Status Last Admin Miscellaneous Information No systemic narcotics to be given except... UNSCH PRN .XX 12/06/17 14:00 12/07/17 13:59 Miscellaneous Information DO NOT ADMINISTER ANY ANTICOAGUL... UNSCH PRN .XX 12/06/17 14:00 12/07/17 13:59 (ePHEDrine/NS 25 MG/5 ML SYR) 10 mg UNSCH PRN IV PUSH 12/06/17 14:00 12/07/17 13:59 Lactated Ringer's 1,000 ml @ 100 mls/hr Q10H IV 12/07/17 03:51 12/07/17 23:50 Oxytocin 500 ml @ 100 mls/hr UNSCH X1 PRN IV 12/07/17 09:00 12/08/17 08:59 (NS Flush) 2 ml BID IV FLUSH 12/07/17 09:00 (NS Flush) 2 ml UNSCH PRN IV FLUSH 12/06/17 23:00 Acetaminophen 100 ml @ 400 mls/hr Q8HR IV 12/06/17 23:00 12/07/17 14:14 (Toradol Inj) 30 mg Q6H PRN IM 12/06/17 23:00 12/07/17 22:59 12/07/17 06:14 (Percocet 5-325 Mg) 1 tab Q4H PRN PO 12/06/17 23:00 (Percocet 5-325 Mg) 2 tab Q4H PRN PO 12/06/17 23:00 12/07/17 03:11 (M-M-R Ii Inj) 0.5 ml ONCE ONCE SQ 12/07/17 16:00 12/07/17 16:01 (Boostrix Inj) 0.5 ml ONCE ONCE IM 12/07/17 16:00 12/07/17 16:01 (Zofran Inj) 4 mg Q6H PRN IV PUSH 12/06/17 23:00 Miscellaneous Information NO SYSTEMIC NARCOTICS TO BE GIVEN FO... UNSCH PRN .XX 12/07/17 00:15 12/08/17 00:14 (Narcan Inj) 0.4 mg UNSCH PRN IV PUSH 12/07/17 00:15 12/08/17 00:14 (Benadryl Inj) 25 mg Q6H PRN IV PUSH 12/07/17 00:15 12/08/17 00:14 (Benadryl) 50 mg Q6H PRN PO 12/07/17 00:15 12/08/17 00:14 Miscellaneous Information ALL NURSING DEPARTMENTS UNSCH PRN .XX 12/07/17 00:15 12/08/17 00:14 Oxytocin 20 units/ Lactated Ringer's 1,002 ml @ 125 mls/hr Q8H IV 12/07/17 01:00 12/07/17 16:59 12/07/17 06:14 (Lindsay Ruelas MD R2) Assessment/Plan Problem List: (1) 39 weeks gestation of ICD Codes: Z3A.39 - 39 weeks gestation of Status: Acute Plan: 32 y/o female who is POD# 1 s/p primary CXN secondary to FTP. -Continue routine care. -Percocet and Toradol PRN pain. -Encouraged OOB. Advised pelvic rest for 6 wks. Will need a f/u appt. in 1 wk for incision check. -Re: ctrl, will discuss tomorrow -Anticipate discharge 1-2 days. GDM -Discontinue glucose checks, wnl Pt discussed with Dr. Castillo (2) GDM (gestational diabetes mellitus) ICD Codes: O24.419 - Gestational diabetes mellitus in , unspecified control Plan: Diagnosed late in ; pt has not been compliant; no 3 hr GTT, not on insulin -Fingerstick blood glucose 80 this morning (Lindsay Ruelas MD R2) Lindsay Ruelas MD R2 Dec 07, 2017 07:42 Jaime Castillo MD Dec 07, 2017 09:52
[2017-12-07] MEDS ORDERED: OXYTOCIN 30 UNITS-500ML PREMIX 500 ML IV PRN (09:00)
[2017-12-07] MEDS: SODIUM CHLORIDE 0.9% FLUSH 10 ML FLUSH IV FLUSH SCH (10:08)
[2017-12-07 13:30] VITALS: BP 122/69; PULSE 80; RESP 18; TEMP 97.6
[2017-12-07] MEDS: IBUPROFEN 600 MG TAB PO PRN ×2 (14:42→20:26)
[2017-12-07] MEDS ORDERED: DIPHTH/TETANUS/ACEL PERTUSSIS (BOOSTER) 0.5 ML VIAL/PFS IM ONE (16:00)
[2017-12-07] MEDS ORDERED: MEASLES, MUMPS, RUBELLA VACCINE 0.5 ML VIAL SQ ONE (16:00)
[2017-12-08] MEDS: oxyCODONE/ACETAMINOPHEN 5 MG/325 MG TAB PO PRN ×5 (00:32→21:49)
[2017-12-08] MEDS: IBUPROFEN 600 MG TAB PO PRN ×3 (02:24→18:25)
--- NOTE | 2017-12-08 08:05 | HHI.OB ---
Subjective Post Operative Day: 2 Remarks Postoperative day # 2. AFVSS overnight. Pain well-controlled. Incision clean, dry, and intact, not draining. Lochia like a period - has not decreased. Denies dysuria. No breast tenderness. She is feeding the baby via breast. Appetite good. No nausea or vomiting. Positive flatus. Positive bowel movement. Ambulating well. Denies fever, chills, cough, shortness of breath, chest pain , and calf pain. Otherwise, she is doing well this morning and has no other complaints. Objective Vitals/I&O Vital Signs Date Time Temp Pulse Resp B/P (MAP) Pulse Ox O2 Delivery O2 Flow Rate FiO2 12/07/17 13:30 97.6 80 18 122/69 (86) Result Diagram: 12/07/17 0638 Objective Remarks GENERAL: Well-nourished, well-developed patient. CARDIOVASCULAR: Regular rate and rhythm without murmurs, gallops, or rubs. RESPIRATORY: Breath sounds equal bilaterally. No accessory muscle use. ABDOMEN/GI: Abdomen soft, non-tender, bowel sounds present. Incision: Clean, dry and intact. Fundus: Firm, non-tender at umbilicus. GENITOURINARY: Light to moderate bleeding. EXTREMITIES: No cyanosis or edema, non-tender, without signs of DVT. Medications and IVs Current Medications Medications (Trade) Dose Ordered Sig/Jose Roberto Route Start Time Stop Time Status Last Admin (NS Flush) 2 ml BID IV FLUSH 12/07/17 09:00 (NS Flush) 2 ml UNSCH PRN IV FLUSH 12/06/17 23:00 (Percocet 5-325 Mg) 1 tab Q4H PRN PO 12/06/17 23:00 (Percocet 5-325 Mg) 2 tab Q4H PRN PO 12/06/17 23:00 12/08/17 05:00 (Zofran Inj) 4 mg Q6H PRN IV PUSH 12/06/17 23:00 (Motrin) 600 mg Q6H PRN PO 12/07/17 15:00 12/08/17 02:24 Assessment/Plan Problem List: (1) 39 weeks gestation of ICD Codes: Z3A.39 - 39 weeks gestation of Status: Acute (2) GDM (gestational diabetes mellitus) ICD Codes: O24.419 - Gestational diabetes mellitus in , unspecified control Assessment and Plan 32 y/o female who is POD# 2 s/p primary CXN secondary to FTP. -Continue routine care. -Percocet and Toradol PRN pain. -Encouraged OOB. Advised pelvic rest for 6 wks. Will need a f/u appt. in 1 wk for incision check and in 6 weeks for a wellness visit -Re: ctrl, will discuss tomorrow GDM -Glucose checks were discontinued, wnl -Fingerstick blood glucose 80 on 4/7 am -She would need a 75g GTT in [address] Pt discussed with Dr[address] Goff Discharge Planning Plan to discharge home in 1 day Mercy Amezcua MD R2 Dec 08, 2017 08:05
[2017-12-08 09:12] VITALS: BP 119/63; PULSE 65; RESP 20; TEMP 97.4
[2017-12-08 19:12] VITALS: BP 120/78; PULSE 97; RESP 14; TEMP 98.2
[2017-12-08] MEDS: SODIUM CHLORIDE 0.9% FLUSH 10 ML FLUSH IV FLUSH SCH (19:13)
[2017-12-08] MEDS ORDERED: SIMETHICONE 80 MG CHEWABLE TAB PO PRN (22:00)
[2017-12-09] MEDS: IBUPROFEN 600 MG TAB PO PRN ×3 (00:28→14:30)
[2017-12-09] MEDS: oxyCODONE/ACETAMINOPHEN 5 MG/325 MG TAB PO PRN ×4 (02:36→16:32)
[2017-12-09] MEDS ORDERED: IBUP-232 PO (07:29)
[2017-12-09] MEDS ORDERED: OXYC1TAB63 PO (07:29)
[2017-12-09] MEDS ORDERED: DOCU8.6T PO (07:29)
--- NOTE | 2017-12-09 07:31 | HHI.DCPOC ---
Discharge Care Plan Report Symptoms to Your Doctor -Temperature above 100.5 degrees -Redness, of incision or excessive or foul smelling drainage -Unusual pain or calf pain -Increased vaginal bleeding -Painful or difficulty urinating -Feelings of extreme sadness or anxiety after 2 weeks Goals to Promote Your Health * To prevent worsening of your condition and complications, please take all medications as prescribed. * To maintain your health at the optimal level, please follow up with your OB doctor in 1 week. Directions to Meet Your Goals Take your medications as prescribed Follow your dietary instruction Follow activity as directed Ensure plenty of rest for recovery Drink fluids for hydration Keep your appointments as scheduled Take your immunizations and boosters as scheduled If your symptoms worsen call your PCP, if no PCP go to Urgent Care Center or Emergency Room Smoking is Dangerous to Your Health. Avoid second hand smoke Call the 24-hour crisis hotline for domestic abuse at Dima Valdovinos MD R1 Dec 09, 2017 07:30
--- NOTE | 2017-12-09 08:38 | HHI.OB ---
Subjective Post Operative Day: 3 Remarks Ms Payne had no acute events overnight. Pain is well controlled on Percocet and Ibuprofen q6-8h, ambulating, tolerating PO, voiding and stooled 2 days ago and flatus since. Requested a stool softener. Lochia is normal and decreasing. There is no drainage from her C-S incision. Pt knows to take showers vs baths for next 2 weeks and will observe pelvic rest for 6 weeks. Plans to get tubes tied when cleared by her OB doctor. Will discharge today but will likely go to Peds floor due to hyperbilirubinemia in baby. (Dima Valdovinos MD R1) Remarks Patient seen and evaluated with resident under direct supervision, agree with assessment and plan. (Jaime Castillo MD) Objective Vitals/I&O Vital Signs Date Time Temp Pulse Resp B/P (MAP) Pulse Ox O2 Delivery O2 Flow Rate FiO2 12/08/17 19:12 97 120/78 (92) 12/08/17 19:12 98.2 14 12/08/17 09:12 97.4 65 20 119/63 (81) (Dima Valdovinos MD R1) Result Diagram: 12/07/17 0638 Objective Remarks GENERAL: Well-nourished, well-developed patient standing next to her bed in [facility]. CARDIOVASCULAR: Regular rate and rhythm without murmurs, gallops, or rubs. RESPIRATORY: Breath sounds equal bilaterally. No accessory muscle use. ABDOMEN/GI: Abdomen soft, non-tender, bowel sounds present. Incision: Clean, dry and intact. Fundus: Firm, non-tender at umbilicus. GENITOURINARY: Light to moderate bleeding. EXTREMITIES: No cyanosis or edema, non-tender, without signs of DVT. Medications and IVs Current Medications Medications (Trade) Dose Ordered Sig/Jose Roberto Route Start Time Stop Time Status Last Admin (NS Flush) 2 ml BID IV FLUSH 12/07/17 09:00 (NS Flush) 2 ml UNSCH PRN IV FLUSH 12/06/17 23:00 (Percocet 5-325 Mg) 1 tab Q4H PRN PO 12/06/17 23:00 12/09/17 07:28 (Percocet 5-325 Mg) 2 tab Q4H PRN PO 12/06/17 23:00 12/08/17 18:25 (Zofran Inj) 4 mg Q6H PRN IV PUSH 12/06/17 23:00 (Motrin) 600 mg Q6H PRN PO 12/07/17 15:00 12/09/17 07:27 (Mylicon Chew) 80 mg Q6H PRN PO 12/08/17 22:00 12/08/17 22:03 (Marilynn-Colace) 1 tab BID PRN PO 12/09/17 09:00 12/09/17 08:26 (Dima Valdovinos MD R1) Assessment/Plan Problem List: (1) 39 weeks gestation of ICD Codes: Z3A.39 - 39 weeks gestation of Status: Resolved Plan: C/S due to failure to progress 2/2 nuchal cord x3 and decels on toco (2) GDM (gestational diabetes mellitus) ICD Codes: O24.419 - Gestational diabetes mellitus in , unspecified control Assessment and Plan 32 y/o female who is POD# 3 s/p primary CXN secondary to FTP. -Continue routine care. -Percocet and Ibuprofen PRN pain. -Encouraged OOB. Advised pelvic rest for 6 wks. Will need a f/u appt. in 1 wk for incision check and in 6 weeks for a wellness visit -Contraception: pt plans for tubal ligation when cleared by her OB doctor GDM -Glucose checks were discontinued, wnl -Fingerstick blood glucose 80 on 4/7 am -She would need a 75g GTT in 6 weeks Dispo: discharge today, but plans to stay with baby on Peds floor due to hyperbilirubinemia Pt discussed with Jareth Csatillo and Yanna Ruelas Discharge Planning Plan to discharge today (Dima Valdovinos MD R1) Dima Valdovinos MD R1 Dec 09, 2017 08:38 Jaime Castillo MD Dec 09, 2017 09:17
[2017-12-09] MEDS ORDERED: DOCUSATE SODIUM 50 MG/SENNA 8.6 MG TAB PO PRN (09:00)
== END 2017-12-09 16:35 | disposition home or self-care (01) | DRG 766 ==
LOC: HOBED 17:23 → H2EB 19:42 → H1EA 12-07 00:04
PROVIDERS: ADMIT Obstetrics & Gynecology; ATTEND Obstetrics & Gynecology
PROC: 10D00Z1 Extraction of Products of Conception, Low, Open Approach (ICD-10-PCS; principal; 2017-12-06)
PROC: 10907ZC Drainage of Amniotic Fluid, Therapeutic from Products of Conception, Via Natural or Artificial Opening (ICD-10-PCS; 2017-12-06)
PROC: 00HU33Z Insertion of Infusion Device into Spinal Canal, Percutaneous Approach (ICD-10-PCS; 2017-12-06)
PROC: 3E0R3BZ Introduction of Anesthetic Agent into Spinal Canal, Percutaneous Approach (ICD-10-PCS; 2017-12-06)
DX: O24.429 Gestational diabetes mellitus in childbirth, unspecified control (principal); D25.2 Subserosal leiomyoma of uterus; O34.13 Maternal care for benign tumor of corpus uteri, third trimester; O69.9XX0 Labor and delivery complicated by cord complication, unspecified, not applicable or unspecified; O62.1 Secondary uterine inertia; O76 Abnormality in fetal heart rate and rhythm complicating labor and delivery; Z91.19 Patient's noncompliance with other medical treatment and regimen; Z37.0 Single live birth; Z3A.39 39 weeks gestation of pregnancy
CPT/HCPCS: 59025; 80307; 81001; 82805; 82948; 85025; 86850; 86900; 86901; 90715; 99283; J0131; J0690; J1100; J1200; J1885; J2405; J2590; J3010; J7120